=== PATIENT | male | born 1950 | race Caucasian/White ===

== ENCOUNTER 2023-03-11 08:17 | Outpatient (CLI) | payer MEDICARE, SELFPAY | END 2023-03-11 08:18 | disposition home or self-care (01) | PROVIDERS: Visit Provider Internal Medicine | DX: I49.9 Cardiac arrhythmia, unspecified (principal); I10 Essential (primary) hypertension; Z12.5 Encounter for screening for malignant neoplasm of prostate; Z13.6 Encounter for screening for cardiovascular disorders | CPT/HCPCS: 80053; 80061; 84153 ==

== ENCOUNTER 2023-06-23 07:51 | Outpatient (CLI) | payer MEDICARE, SELFPAY | END 2023-06-23 07:52 | disposition home or self-care (01) | LOC: NFLDREF 06-24 11:42 | PROVIDERS: PCP Internal Medicine; Referring Provider Internal Medicine; Visit Provider Internal Medicine | DX: R97.20 Elevated prostate specific antigen [PSA] (principal) | CPT/HCPCS: 84153 ==

== ENCOUNTER 2023-07-29 15:23 | Outpatient (CLI) | payer MEDICARE, SELFPAY ==
--- NOTE | 2023-07-29 15:30 | CRLHL7_ITS ---
For Patients: As a result of the Century Cures Act, medical imaging exams and procedure reports are released immediately into your electronic medical record. You may view this report before your referring provider. If you have questions, please contact your health care provider. DXA BONE MINERAL DENSITY STUDY Reason for exam: Osteoporosis. Current height (inches): 68.0 Weight (lbs.): 182.0 Menopause age: Not applicable Ethnicity: White 1. Have you had a previous hip or vertebral fracture? Yes. 2. Have you had any fractures during your adult life which did not result from significant trauma (e.g., auto accident)? Yes. 3. Did either of your parents have a hip fracture? No. 4. Do you smoke? No. 5. Have you ever taken Glucocorticoids? No. 6. Do you have rheumatoid arthritis? No. 7. Do you have secondary osteoporosis? Yes. 8. Do you drink 3 or more alcoholic drinks per day? No. 9. Are you being treated for osteoporosis? No. 10. Have you ever taken any of the following medications: Actonel, Evista, Fosamax, Miacalcin, Reclast, Boniva, Forteo, HRT (i.e., estrogen/hormone therapy), Protelos, Prolia, Vitamin D, Calcium, other ??? please specify. ANSWER: Yes; Fosamax, vitamin D, calcium. 11. Do you have any of the following medical conditions: Anorexia or bulimia, asthma or emphysema, end stage renal disease, hyperparathyroidism, any seizure disorders, cancer, inflammatory bowel diseases, hysterectomy, other ??? please specify. ANSWER: No. 12. What was your maximum height (inches)? 71. 13. Do you perform weightbearing exercise regularly? Yes. 14. Do you regularly consume dairy products? Yes. 15. Do you drink caffeinated beverages? Yes. TECHNIQUE: Bone mineral density study was performed using the [employer] FINDINGS: The results of the study expressed as bone mineral density (BMD) are as follows: Lumbar Spine L1 to L4: BMD: 0.877 g/cm2. T-score: -1.9. Z-score: -0.9. Neck Left: BMD: 0.621 g/cm2. T-score: -2.3. Z-score: -1.0. Right: BMD: 0.576 g/cm2. T-score: -2.6. Z-score: -1.3. Total Left: BMD: 0.679 g/cm2. T-score: -2.3. Z-score: -1.5. Right: BMD: 0.668 g/cm2. T-score: -2.4. Z-score: -1.6. IMPRESSION: Osteoporosis. DANE TOBIN M.D. Diagnostic Radiologist [email or web address] Transcribed: 5:[address]/Dictated by: Dane Tobin MD @ 07/30/2023 8:17:00 AM (Electronically Signed)
--- NOTE | 2023-10-04 09:34 | AT.DPN ---
Dx: Prostate cancer
== END 2023-07-29 15:24 | disposition home or self-care (01) ==
LOC: RAD 15:24
PROVIDERS: PCP Internal Medicine; Visit Provider Internal Medicine
DX: M81.0 Age-related osteoporosis without current pathological fracture (principal); M85.80 Other specified disorders of bone density and structure, unspecified site
CPT/HCPCS: 77080

== ENCOUNTER 2023-10-01 18:52 | Outpatient (REF) | payer MEDICARE, SELFPAY ==
[2023-10-03 16:43] LABS: Testosterone, Adult Male 467 ng/dL (300-720)
== END 2023-10-01 18:53 | disposition home or self-care (01) ==
LOC: NPINS 18:52
PROVIDERS: PCP Internal Medicine; Visit Provider Nurse Practitioner
DX: C61 Malignant neoplasm of prostate (principal)
CPT/HCPCS: 84153; 84403

== ENCOUNTER 2024-07-27 14:00 | Outpatient (CLI) | payer MEDICARE, SELFPAY | END 2024-07-27 14:01 | disposition home or self-care (01) | LOC: NFLDREF 07-31 05:54 | PROVIDERS: PCP Internal Medicine; Referring Provider Internal Medicine; Visit Provider Internal Medicine | DX: Z12.5 Encounter for screening for malignant neoplasm of prostate (principal) | CPT/HCPCS: G0103 ==

== ENCOUNTER 2024-10-17 09:22 | Outpatient (CLI) | payer MEDICARE, SELFPAY | END 2024-10-17 09:23 | disposition home or self-care (01) | LOC: NFLDREF 09:23 | PROVIDERS: PCP Internal Medicine; Visit Provider Internal Medicine | DX: Z12.5 Encounter for screening for malignant neoplasm of prostate (principal) | CPT/HCPCS: G0103 ==

== ENCOUNTER 2025-01-17 15:36 | Outpatient (CLI) | payer MEDICARE, SELFPAY | END 2025-01-17 15:37 | disposition home or self-care (01) | LOC: NFLDREF 01-21 03:22 | PROVIDERS: PCP Internal Medicine; Referring Provider Internal Medicine; Visit Provider Internal Medicine | DX: Z12.5 Encounter for screening for malignant neoplasm of prostate (principal) | CPT/HCPCS: G0103 ==

== ENCOUNTER 2025-04-24 08:24 | Outpatient (CLI) | payer MEDICARE, SELFPAY | END 2025-04-24 08:25 | disposition home or self-care (01) | LOC: NFLDREF 04-27 14:43 | PROVIDERS: PCP Internal Medicine; Referring Provider Internal Medicine; Visit Provider Internal Medicine | DX: E78.5 Hyperlipidemia, unspecified (principal); C61 Malignant neoplasm of prostate; I10 Essential (primary) hypertension; Z12.5 Encounter for screening for malignant neoplasm of prostate | CPT/HCPCS: 80053; 80061; G0103 ==

== ENCOUNTER 2025-07-18 08:57 | Outpatient (CLI) | payer MEDICARE, SELFPAY | END 2025-07-18 08:58 | disposition home or self-care (01) | LOC: NFLDREF 07-23 10:32 | PROVIDERS: PCP Internal Medicine; Referring Provider Internal Medicine; Visit Provider Internal Medicine | DX: C61 Malignant neoplasm of prostate (principal) | CPT/HCPCS: 84153 ==